=== PATIENT | female | born 1970 | race Caucasian/White ===

== ENCOUNTER 2017-04-06 18:37 | Emergency (ER) | payer MEDICAID, MEDICARE ==
[~2017-04-06] VITALS: Ht 165.1 cm; Wt 53.6 kg
[2017-04-06] MEDS ORDERED: SODIUM CHLORIDE 0.9% 1,000ML IVBOLUS ONE (19:30)
[2017-04-06] MEDS ORDERED: SODIUM CHLORIDE FLUSH 10ML SYR IVF ONE (19:30)
[2017-04-06] MEDS ORDERED: ONDANSETRON 2MG/ML, 2ML IVPush ONE (19:30)
[2017-04-06 19:57] LABS: BLOOD UREA NITROGEN 16 mg/dL (7-18)
[2017-04-06 20:02] LABS: ASPARTATE AMINO TRANSFERASE 11 U/L (15-37)
[2017-04-06 20:32] LABS: HEMATOCRIT 33.8 % (34.6-47.8); HEMOGLOBIN 11.1 g/dL (11.7-16.4); WHITE BLOOD COUNT 5.7 x10^3/uL (3.4-10)
[2017-04-06 22:04] VITALS: BP 112/67
== END 2017-04-06 22:08 | disposition home or self-care (01) ==
LOC: ED 21:17
DX: R10.84 Generalized abdominal pain (principal); R11.0 Nausea; F15.10 Other stimulant abuse, uncomplicated; F12.10 Cannabis abuse, uncomplicated; F17.210 Nicotine dependence, cigarettes, uncomplicated
CPT/HCPCS: 36415; 80053; 81001; 83690; 84703; 85025; 87086; 96360; 99284; J7030